=== PATIENT | male | born 1975 | race Two or more races ===

== ENCOUNTER 2019-05-25 10:46 | Emergency (ER) | payer SELFPAY ==
[~2019-05-25] VITALS: Ht 165.1 cm; Wt 63.5 kg
--- NOTE | 2019-05-25 11:10 | NUR ---
ED Nurse Note: pt amb steady gait to p for urine sample. clear yellow urine noted. pt family states c/o testicular pain that radiates to his legs x1 week. no known injury. no n/v/d. no abd pain
[2019-05-25 11:14] LABS: APPEARANCE,URINE CLEAR; BILIRUBIN, URINE NEGATIVE (NEGATIVE); COLOR,URINE PALE YELLOW; GLUCOSE, URINE (UA) NEGATIVE (NEGATIVE); KETONES,URINE NEGATIVE (NEGATIVE); LEUKOCYTE ESTERASE ,URINE NEGATIVE (NEGATIVE); NITRITE,URINE NEGATIVE (NEGATIVE); PH,URINE 8 (4.5-8.0); PROTEIN,URINE NEGATIVE (NEGATIVE); UROBILINOGEN,URINE NORMAL MG/DL (0.0-1.0)
--- NOTE | 2019-05-25 11:26 | NUR ---
ED Nurse Note: pt with bedside ultrasound being done
--- NOTE | 2019-05-25 12:41 | NUR ---
ED Nurse Note: pt reeval by md awaits further dispo
[2019-05-25] MEDS ORDERED: IBUPROFEN600 MG ORAL (12:54)
--- NOTE | 2019-05-25 13:02 | NUR ---
ER DISCHARGE NOTE: Patient is cleared to be discharged per ERMD, pt is aox4, on room air, with stable vital signs. pt was given dc and prescription instructions, pt was able to verbalize understanding, pt id band removed. pt is able to ambulate with steady gait. pt took all belongings. pt given urine result copy. ultrasound report not available upon dc. pt and family aware of fu with pmd
[2019-05-25 13:04] VITALS: BP 130/88
--- NOTE | 2019-05-25 13:24 | Emergency Room Report ---
History of Present Illness General Chief Complaint: Pain Source: Patient Present Illness HPI Patient presents with complaints of right-sided testicular pain Patient reports that over the past 7 days he has felt discomfort off and on in that area denies any obvious trauma denies any discharge denies any inguinal pain however he feels that the right upper leg also has some discomfort with this denies any rectal discomfort denies any difficulty with bowel movement Denies any abdominal pain Allergies: Coded Allergies: No Known Allergies (Unverified , 05/25/19) Patient History Past Medical History: see triage record Pertinent Family History: none Reviewed Nursing Documentation: PMH: Agreed; PSxH: Agreed Nursing Documentation-PM Past Medical History: No Stated History Review of Systems All Other Systems: negative except mentioned in HPI Physical Exam Vital Signs Date Time Temp Pulse Resp B/P (MAP) Pulse Ox O2 Delivery O2 Flow Rate FiO2 05/25/19 10:51 98.4 77 16 162/91 (114) 98 Room Air Sp02 EP Interpretation: reviewed, normal General Appearance: well appearing, no apparent distress Head: normocephalic, atraumatic Eyes: bilateral eye PERRL, bilateral eye EOMI ENT: hearing grossly normal, normal pharynx, TMs + canals normal, uvula midline Neck: full range of motion, supple, no meningismus, no bony tend Respiratory: lungs clear, normal breath sounds, no rhonchi, no respiratory distress, no retraction, no accessory muscle use Cardiovascular #1: normal peripheral pulses, regular rate, rhythm, no edema, no gallop, no JVD, no murmur Gastrointestinal: normal bowel sounds, non tender, soft, no mass, no organomegaly, non-distended, no guarding, no hernia, no pulsatile mass, no rebound, other - Uncircumcised, bilateral testicles descended tender on the right side on palpation otherwise no acute pathology noted. Inguinal canal is soft does not show any masses Genitourinary: no CVA tenderness Musculoskeletal: normal inspection Neurologic: oriented x3, responsive, dress operator III-XII nml as tested, motor strength/ tone normal, sensory intact Psychiatric: mood/affect normal Skin: no rash Lymphatic: normal inspection, no adenopathy Medical Decision Making Diagnostic Impression: Primary Impression: testicle pain ER Course Multiple differentials including but not limited to testicular torsion, epididymitis, varicocele or entertained There is no obvious edema or erythema ultrasound was obtained that shows appropriate flow and no other secondary findings There was a question of varicocele on that side I do not see any evidence of incarcerated hernia and patient is stable for initial conservative outpatient trial Labs Test 05/25/19 11:00 Urine Color Pale yellow Urine Appearance Clear Urine pH 8 (4.5-8.0) Urine Specific Olden 1.010 (1.005-1.035) Urine Protein Negative (NEGATIVE) Urine Glucose (UA) Negative (NEGATIVE) Urine Ketones Negative (NEGATIVE) Urine Blood Negative (NEGATIVE) Urine Nitrite Negative (NEGATIVE) Urine Bilirubin Negative (NEGATIVE) Urine Urobilinogen Normal MG/DL (0.0-1.0) Urine Leukocyte Esterase Negative (NEGATIVE) CT/MRI/US Diagnostic Results CT/MRI/US Diagnostic Results : Impression Testicular ultrasoundImpression: Negative scrotal ultrasound Last Vital Signs Date Time Temp Pulse Resp B/P (MAP) Pulse Ox O2 Delivery O2 Flow Rate FiO2 05/25/19 13:04 75 20 130/88 99 Room Air 05/25/19 10:51 98.4 Status: improved Disposition: HOME, SELF-CARE Condition: Improved Scripts Ibuprofen* (MOTRIN*) 600 Mg Tablet 600 MG ORAL Q8H PRN for For Pain, #20 TAB 0 Refills Prov: Zakiya York DO 05/25/19 Referrals: NOT CHOSEN IPA/MD,REFERRING (PCP) Patient Instructions: Varicocele Additional Instructions: Patient is provided with the discharge instructions notified to follow up with primary doctor in the next 2-3 days otherwise return to the er with any worsening symptoms. Please note that this report is being documented using [employer] technology. This can lead to erroneous entry secondary to incorrect interpretation by the dictating instrument. Zakiya York DO May 25, 2019 13:24
--- NOTE | 2019-05-25 15:41 | Diagnostic Imaging Report ---
Indication:Scrotal pain Technique: Real time grayscale and duplex Doppler imaging of the scrotum performed. Comparison: None Findings: The size, contour, and echogenicitiy of the testis appear normal bilaterally. There is no testicular mass or evidence of torsion. There is good doppler evidence of blood flow within both testes. Epididimi are unremarkable. Right testis is a 4 x 1.7 x 3 cm. Left testis 3.7 x 1.6 x 2.6 cm. Impression: Negative scrotal ultrasound
== END 2019-05-25 13:06 | disposition home or self-care (01) ==
LOC: EMR 11:30
DX: N50.811 Right testicular pain (principal)
CPT/HCPCS: 76870; 81003; 99284